=== PATIENT | female | born 1960 | race Caucasian/White ===

== ENCOUNTER 2023-09-27 00:56 | Emergency (ER) | payer MEDICAID, MEDICARE ==
[2023-09-27] MEDS: Ondansetron 4 MG/2 ML SDV IVPUSH PRN (01:23)
[2023-09-27 01:25] LABS: BASOPHILS ABSOLUTE AUTO 0.03 K/uL (0.00-0.20); BASOPHILS PERCENT AUTO 0.3 % (0.0-2.0); EOSINOPHILS ABSOLUTE AUTO 0.01 K/uL (0.00-0.50); EOSINOPHILS PERCENT AUTO 0.1 % (0.0-5.0); HEMOGLOBIN 14.2 g/dL (11.7-15.5); LYMPHOCYTES ABSOLUTE AUTO 0.75 K/uL (0.50-3.50); LYMPHOCYTES PERCENT AUTO 6.5 % (10.0-50.0); MEAN CORPUSCULAR HEMOGLOBIN 31.7 pg (28.2-33.3); MEAN CORPUSCULAR HGB CONC 33.8 g/dL (31.7-36.0); MEAN CORPUSCULAR VOLUME 93.8 fL (84.0-98.0); MONOCYTES ABSOLUTE AUTO 0.29 K/uL (0.00-1.00); MONOCYTES PERCENT AUTO 2.5 % (2.0-14.0); NEUTROPHILS ABSOLUTE AUTO 10.39 K/uL (1.40-7.00); NEUTROPHILS PERCENT AUTO 90.6 % (45.0-80.0); PLATELET COUNT,PLT 228 K/uL (150-350); RED BLOOD CELL COUNT 4.48 M/uL (3.77-5.09); WHITE BLOOD CELL COUNT,WBC 11.5 K/uL (4.0-10.2)
[2023-09-27] MEDS: Lactated Ringers 1,000 ML IV SCH (01:28)
[2023-09-27] MEDS ORDERED: Naloxone 0.4 MG/ML SDV IVPUSH PRN (01:36)
[2023-09-27 01:37] LABS: INR 1.6 (0.9-1.1); PROTHROMBIN TIME 16.1 SEC (9.0-11.1)
[2023-09-27] MEDS: fentaNYL 50 MCG/ML SDV IVPUSH ONE (01:43)
[2023-09-27 01:47] LABS: ALBUMIN 4.1 g/dL (3.4-5.0); ANION GAP 8.1 meq/L (7-15); BILIRUBIN TOTAL 1.3 mg/dL (0.2-1.0); CALCIUM 9.1 mg/dL (8.5-10.1); CARBON DIOXIDE,CO2 28.9 mmol/L (21.0-32.0); CREATININE 1.3 mg/dL (0.51-1.17); POTASSIUM,K 4.1 mmol/L (3.5-5.1); PROTEIN TOTAL,TP 7.7 g/dL (6.4-8.2)
[2023-09-27 01:59] LABS: APPEARANCE,URINE CLOUDY; COLOR,URINE RED; LEUKOCYTE ESTERASE,URINE LARGE (NEGATIVE); NITRITE,URINE POSITIVE (NEGATIVE); OCCULT BLOOD,URINE LARGE (NEGATIVE); PH,URINE 5.5 (5.0-9.0)
[2023-09-27 02:09] LABS: BILIRUBIN,URINE NEGATIVE (NEGATIVE); GLUCOSE,URINE NEGATIVE (NEGATIVE); KETONES,URINE NEGATIVE (NEGATIVE); PROTEIN,URINE 30 mg/dL (NEGATIVE); UROBILINOGEN,URINE 0.2 E.U./dL (0.2-1.0)
[2023-09-27 02:10] LABS: BACTERIA,URINE FEW /HPF (NONE TO FEW); EPITHELIAL CELLS,URINE FEW /LPF; MUCUS,URINE RARE /LPF (NEGATIVE); RBC,URINE >100 /HPF
[2023-09-27 02:16] LABS: EST CRCL DRUG DOSING (CG) 40.38 mL/min
[2023-09-27] MEDS: Ketorolac 30 MG/ML SDV IVPUSH ONE (02:21)
[2023-09-27] MEDS: Meropenem 1 GM SDV IVPUSH ONE (03:15)
[2023-09-27] MEDS: Sodium Chloride 0.9% 10 ML Syringe FLUSH PRN (03:16)
[2023-09-27] MEDS: Tamsulosin 0.4 MG Cap.ER PO ONE (03:24)
== END 2023-09-27 03:55 ==
LOC: LL.ED 00:56
DX: N13.2 Hydronephrosis with renal and ureteral calculous obstruction (principal); N39.0 Urinary tract infection, site not specified; I48.91 Unspecified atrial fibrillation; I25.2 Old myocardial infarction; Z95.0 Presence of cardiac pacemaker; K21.9 Gastro-esophageal reflux disease without esophagitis; E11.9 Type 2 diabetes mellitus without complications; Z88.1 Allergy status to other antibiotic agents; Z88.5 Allergy status to narcotic agent; Z88.0 Allergy status to penicillin; Z88.2 Allergy status to sulfonamides; Z88.8 Allergy status to other drugs, medicaments and biological substances; Z79.82 Long term (current) use of aspirin; Z79.84 Long term (current) use of oral hypoglycemic drugs; Z79.01 Long term (current) use of anticoagulants; Z79.899 Other long term (current) drug therapy; Z86.73 Personal history of transient ischemic attack (TIA), and cerebral infarction without residual deficits
CPT/HCPCS: 36415; 74176; 80053; 81001; 83880; 85025; 85610; 87086; 87088; 87186; 96361; 96374; 96375; 99285-25; A9270-GY; J1885; J2185; J2405; J3010; J3490; J7120